=== PATIENT | male | born 1945 | race Caucasian/White ===

== ENCOUNTER → 2016-04-20 | Outpatient (CLI) | payer OTHER ==
[2016-04-20 16:12] LABS: BASOPHILS # (AUTO) 0.04 10*3/UL; BASOPHILS % (AUTO) 0.6 % (0-1); BILIRUBIN,TOTAL 0.8 mg/dL (0.3-1.2); CALCIUM 9.2 mg/dL (8.7-10.7); CREATININE 1.1 mg/dL (0.70-1.50); EOSINOPHILS % (AUTO) 3.3 % (0-8); HEMATOCRIT 48.4 % (42.0-52.0); HEMOGLOBIN 16.4 g/dL (14.0-18.0); IMM GRAN % (AUTO) 0.3 % (0-5); IMM GRAN# (AUTO) 0.02 10*3/UL; LDL CHOLESTEROL,CALCULATED 91.8 mg/dL; LYMPHOCYTES # (AUTO) 1.56 10*3/uL; LYMPHOCYTES % (AUTO) 23.5 % (10-50); MEAN CORPUSCULAR HEMOGLOBIN 30.8 PG (27-31); MEAN CORPUSCULAR HGB CONC 33.9 g/dL (33-37); MEAN PLATELET VOLUME 9.7 FL (7.4-12.2); MONOCYTES # (AUTO) 0.66 10*3/UL (0.3-0.8); MONOCYTES % (AUTO) 9.9 % (5-15); NEUTROPHILS # (AUTO) 4.15 10*3/UL; NEUTROPHILS % (AUTO) 62.4 % (50-80); POTASSIUM 4.3 meq/L (3.8-5.2); RDW COEFFICIENT OF VARIATION 13.5 % (11.5-14.5); RED BLOOD COUNT 5.32 10^6/uL (4.70-6.10); TOTAL PROTEIN 6.9 g/dL (6.1-8.0); WHITE BLOOD COUNT 6.65 10^3/uL (4.8-10.8)
[2016-04-20 16:13] LABS: PLATELET MORPHOLOGY COMMENT NORMAL MORPHOLOGY (NORM)
[2016-04-20 16:23] LABS: BILIRUBIN,URINE NEGATIVE (NEG); CLARITY,URINE CLEAR (CLEAR); GLUCOSE, URINE (UA) NEGATIVE (NEG); LEUKOCYTE ESTERASE ,URINE NEGATIVE (NEG); NITRATE,URINE NEGATIVE (NEG); OCCULT BLOOD,URINE NEGATIVE (NEG); PROTEIN,URINE NEGATIVE (NEG); UROBILINOGEN,URINE 0.2 mg/dL (0.2)
[2016-04-20 16:28] LABS: SQUAMOUS EPITHELIAL CELL,UR FEW; URINE SAMPLE TYPE VOIDED SPECIMEN; WBC,URINE 0-2
== END ==
LOC: MOB LAB 14:50
DX: I10 Essential (primary) hypertension (principal); E55.9 Vitamin D deficiency, unspecified; J44.9 Chronic obstructive pulmonary disease, unspecified; Z86.010 Personal history of colon polyps; Z85.46 Personal history of malignant neoplasm of prostate
CPT/HCPCS: 36415; 80053; 80061; 81001; 82306; 84443; 85025; 99213; G0103; G0463

== ENCOUNTER → 2016-08-26 | Outpatient (CLI) | payer OTHER | LOC: MMPC 11:11 | DX: I10 Essential (primary) hypertension (principal); J44.9 Chronic obstructive pulmonary disease, unspecified; E55.9 Vitamin D deficiency, unspecified; Z85.46 Personal history of malignant neoplasm of prostate; Z86.010 Personal history of colon polyps | CPT/HCPCS: 99213; G0463 ==